=== PATIENT | female | born 1935 | race Caucasian/White ===

== ENCOUNTER 2016-07-29 09:45 | Day surgery (SDC) | payer MEDICARE ==
--- NOTE | ~2016-07-29 | EGD ---
EGD REPORT [facility] [address] [place] 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 Enlarging cystic neoplasm on CT. Referring MD: JO Anderson III, MD Medicines: Monitored Anesthesia Care, Levaquin 750 mg IV Complications: No immediate complications. Estimated blood loss: None. Procedure: Pre-Anesthesia Assessment: - ASA Grade Assessment: III - A patient with severe systemic disease. After obtaining informed consent, the endoscope was passed under direct vision. Throughout the procedure, the patient's blood pressure, pulse, and oxygen saturations were monitored continuously. The Endoscope was introduced through the mouth, and advanced to the second part of duodenum. Findings: Endosonographic Finding : An anechoic lesion suggestive of a cyst was identified in the pancreatic tail. The lesion measured 43 mm by 30 mm in maximal cross-sectional diameter. There were many compartments thinly septated. The outer wall of the lesion was thin. There was no associated mass. There was internal debris within the fluid-filled cavity. Diagnostic needle aspiration for fluid was performed. Color Doppler imaging was utilized prior to needle puncture to confirm a lack of significant vascular structures within the needle path. One pass was made with the 22 gauge needle using a transgastric approach. No stylet was used. The amount of fluid collected was 3 mL. The fluid was clear and turbid. Sample(s) were sent for cytology and CEA. The pancreatic duct had a dilated endosonographic appearance in the body of the pancreas. The pancreatic duct measured up to 4 mm in diameter. There was no sign of significant endosonographic abnormality in the common bile duct. There was no sign of significant endosonographic abnormality in the examined duodenum. Endosonographic images of the stomach were unremarkable. No lymphadenopathy seen. There was no sign of significant endosonographic abnormality in the common bile duct. EGD REPORT [address] [address] NAME: SALINA COSBY : [birth year] STATUS : [facility] PAT#: [id number] AGE: 80 ADM/REG DATE : 07/29/16 MR#: [id number] REPORT SERV DATE: 07/29/16 DICTATED BY: NIA SAHU DATE: 07/29/16 REPORT STATUS : Draft TRANSCRIBED BY: [employer] DATE: 07/29/16 Impression: - A 43 mm by 30 mm cystic lesion was seen in the pancreatic tail. - The pancreatic duct had a dilated endosonographic appearance in the body of the pancreas. The pancreatic duct measured up to 4 mm in diameter. - There was no sign of significant pathology in the common bile duct. - There was no sign of significant pathology in the examined duodenum. - Endosonographic images of the stomach were unremarkable. - There was no sign of significant pathology in the common bile duct. Recommendation: - Continue present medications. - Levaquin (levofloxacin) 500 mg PO daily for 2 days. - Await cytology results and await tumor markers. - Return to previous diet. Procedure Code(s): --- Professional --- 49220, Esophagogastroduodenoscopy, flexible, transoral; with transendoscopic ultrasound-guided intramural or transmural fine needle aspiration/biopsy(s) (includes endoscopic ultrasound examination of the esophagus, stomach, and either the duodenum or a surgically altered stomach where the jejunum is examined distal to the anastomosis) Diagnosis Code(s): --- Professional --- K86.2, Cyst of pancreas R93.3, Abnormal findings on diagnostic imaging of other parts of digestive tract D49.0, Neoplasm of unspecified behavior of digestive system CPT copyright 2013 [employer]. All rights reserved. The codes documented in this report are preliminary and upon front facer review may be revised to meet current compliance requirements. NIA SAHU, 07/29/2016 12:29 PM Number of Addenda: 0 EGD REPORT [facility] [address] [place] [address] NAME: ALEASALINA VIRIGLIO : 35 STATUS : [facility] PAT#: [id number] AGE: 80 ADM/REG DATE : 07/29/16 MR#: [id number] REPORT SERV DATE: 07/29/16 DICTATED BY: NIA SAHU DATE: 07/29/16 REPORT STATUS : Draft TRANSCRIBED BY: [employer] DATE: 07/29/16 Note Initiated On: 07/29/2016 11:40 AM Scope Withdrawal Time 0 hours 0 minutes 0 seconds [address] [place] [id number]
[~2016-07-29 09:45] MED LIST: ASAB PO; AUG500 PO; B12250T PO; BEN25 PO; BUM1 PO; CELEXA10 PO; CELEXA20 PO; CLARIT10 PO; CRESTOR20 MG PO; DOLOPHINE5 MG PO; FLONASE NAS; FLORASTOR250 MG PO; I40 PO; LIDOCAINE 2% JELLY TOP; LIDODERM TOP; METHATAB5B PO; NORCO1 TA2 PO; P5 PO; PREDNISOL5 PO; PREDNISOLONE 5 MG; PRILOSEC40 MG PO; PROAIR HFA INH; RELA5 PO; SYMBICORT INH; VITD PO; ZANTAC150 MG PO
[2016-07-29 10:22] LABS: CALCIUM, SERUM 9.5 MG/DL (8.5-10.4); CHLORIDE, SERUM 109 MMOL/L (96-112); CREATININE 1.27 MG/DL (0.55-1.02); GFR AFRICAN AMERICAN 46 ML/MIN (>=60); GFR NON AFRICAN AMERICAN 40 ML/MIN (>=60); SODIUM, SERUM 142 MMOL/L (135-148)
[2016-07-29 10:24] LABS: BUN (BLOOD UREA NITROGEN) 16 MG/DL (6-23); CO2 (CARBON DIOXIDE) 34 MMOL/L (24-34); GLUCOSE, SERUM 137 MG/DL (60-99); POTASSIUM, SERUM 5.4 MMOL/L (3.5-5.3)
[2016-07-29 22:19] LABS: BD FL SOURCE (NOT ORD) PANCREATIC CYST
== END 2016-07-29 23:59 | disposition home or self-care (01) ==
LOC: DMU 09:45
PROVIDERS: Anesthesiology; Internal Medicine Gastroenterology
PROC: BD47ZZZ Ultrasonography of Gastrointestinal Tract (ICD-10-PCS; 2016-07-29)
PROC: 0F9G4ZX Drainage of Pancreas, Percutaneous Endoscopic Approach, Diagnostic (ICD-10-PCS; principal; 2016-07-29 11:00)
DX: D13.6 Benign neoplasm of pancreas (principal); K86.89 Other specified diseases of pancreas; K58.9 Irritable bowel syndrome, unspecified; K21.9 Gastro-esophageal reflux disease without esophagitis; K44.9 Diaphragmatic hernia without obstruction or gangrene; I11.0 Hypertensive heart disease with heart failure; I50.9 Heart failure, unspecified; I25.10 Atherosclerotic heart disease of native coronary artery without angina pectoris; I71.4 Abdominal aortic aneurysm, without rupture; E89.0 Postprocedural hypothyroidism; E16.2 Hypoglycemia, unspecified; J44.9 Chronic obstructive pulmonary disease, unspecified; G47.33 Obstructive sleep apnea (adult) (pediatric); G89.29 Other chronic pain; G57.93 Unspecified mononeuropathy of bilateral lower limbs; M19.90 Unspecified osteoarthritis, unspecified site; M85.80 Other specified disorders of bone density and structure, unspecified site; M25.569 Pain in unspecified knee; L40.9 Psoriasis, unspecified; F32.9 Major depressive disorder, single episode, unspecified; Z95.5 Presence of coronary angioplasty implant and graft; Z98.1 Arthrodesis status; Z88.1 Allergy status to other antibiotic agents; Z88.5 Allergy status to narcotic agent; Z88.6 Allergy status to analgesic agent; Z88.8 Allergy status to other drugs, medicaments and biological substances; Z91.048 Other nonmedicinal substance allergy status; Z87.891 Personal history of nicotine dependence; Z98.41 Cataract extraction status, right eye; Z98.42 Cataract extraction status, left eye; Z96.1 Presence of intraocular lens; Z90.89 Acquired absence of other organs; Z87.01 Personal history of pneumonia (recurrent); Z98.890 Other specified postprocedural states; Z90.49 Acquired absence of other specified parts of digestive tract; Z90.710 Acquired absence of both cervix and uterus
CPT/HCPCS: 80048; 82378; 88173; 88305; J1956